=== PATIENT | female | born 1990 | race Asian ===

== ENCOUNTER 2023-01-03 17:15 | Emergency (ER) | payer OTHER ==
[~2023-01-03] VITALS: Ht 167.6 cm; Wt 54.4 kg
[2023-01-03 17:35] VITALS: BP_SYST 113; PULSE 77; RESP 18; TEMP 97.4; O2SAT 99
[2023-01-03] MEDS ORDERED: HYDROcodone/ACETAMIN 5-325 MG TAB (NORCO/ VICODIN) PO ONE (18:00)
[2023-01-03] MEDS ORDERED: HYDROcodone/ACETAMIN 5-325 MG TAB (NORCO/ VICODIN) ONE (20:21)
[2023-01-03] MEDS ORDERED: HYDR-3917 PO (21:28)
[2023-01-03 21:41] VITALS: BP_SYST 110; PULSE 72; RESP 18; TEMP 98.4; O2SAT 98
== END 2023-01-03 21:41 | disposition home or self-care (01) ==
LOC: SED 17:15
DX: S32.028A Other fracture of second lumbar vertebra, initial encounter for closed fracture (principal); S32.038A Other fracture of third lumbar vertebra, initial encounter for closed fracture; Z79.899 Other long term (current) drug therapy; W01.0XXA Fall on same level from slipping, tripping and stumbling without subsequent striking against object, initial encounter; Y93.89 Activity, other specified; Y92.89 Other specified places as the place of occurrence of the external cause; Y99.8 Other external cause status
CPT/HCPCS: 72131; 76376; 99284